=== PATIENT | female | born 1950 | race Caucasian/White ===

== ENCOUNTER → 2016-04-10 | Outpatient (CLI) | payer OTHER ==
[~2016-04-10] MED LIST: ALLOPURINOL100 MG PO; CHOLESTEROL PILL; HYDROCHLOROTHIA25 MG PO; PERCOCET 325 MG1 TA5 PO; ZETIA10 MG PO
== END | disposition home or self-care (01) ==
LOC: MAMMO 12:30
DX: Z12.31 Encounter for screening mammogram for malignant neoplasm of breast (principal)

== ENCOUNTER → 2016-11-07 | Outpatient (CLI) | payer OTHER | END | disposition home or self-care (01) | LOC: US 12:18 | DX: N95.0 Postmenopausal bleeding (principal); R93.8 Abnormal findings on diagnostic imaging of other specified body structures; N93.9 Abnormal uterine and vaginal bleeding, unspecified ==

== ENCOUNTER → 2016-12-23 | Outpatient (CLI) | payer OTHER ==
[~2016-12-23] MED LIST changes: +ATORVASTATIN CA10 M1 PO; +CENTRUM SILVER1 EAC1 PO; +COQ-1030 MG PO; +OMEGA 3 1,0001 EACH PO; +VALSARTAN40 MG PO; +VITAMIN D-32000 UNI1 PO
[2016-12-23 11:20] LABS: BASO % 0.2 % (0.0-1.0); EOS # 0.3 10*3/uL (0.0-0.4); EOS % 3.4 % (1.0-4.0); HEMATOCRIT 43.3 % (37.0-47.0); HEMOGLOBIN 14.6 g/dl (12.0-16.0); LYMPH % 49.9 % (27.0-41.0); MEAN CELL VOLUME 92.1 fl (81.0-99.0); MEAN CORPUSCULAR HGB 31.1 pg (27.0-31.0); MEAN CORPUSCULAR HGB CONC 33.7 g/dl (33.0-37.0); MEAN PLATELET VOLUME 10.6 fl (9.6-12.3); MONO # 0.6 10*3/uL (0.1-1.0); MONO % 7.7 % (3.0-9.0); NEUT # 3.1 10*3/uL (2.3-7.9); NEUT % 38.7 % (47.0-73.0); PLATELET COUNT AUTOMATED 198 10*3/uL (130-400); RED CELL DISTRI WIDTH 13.3 % (0-14.5); WHITE BLOOD COUNT 8.1 10*3/uL (4.8-10.8)
== END | disposition home or self-care (01) ==
LOC: LAB 09:32
PROVIDERS: Obstetrics & Gynecology
DX: N95.0 Postmenopausal bleeding (principal); N88.2 Stricture and stenosis of cervix uteri; R93.8 Abnormal findings on diagnostic imaging of other specified body structures

== ENCOUNTER → 2016-12-29 | Day surgery (SDC) | payer OTHER ==
[~2016-12-29] VITALS: Ht 160 cm; Wt 108.0 kg
--- NOTE | ~2016-12-29 | O ---
[place], [place] OPERATIVE NOTE NAME: AFIA CARLSON UNIT #: [id number] ROOM: DOCTOR: LISSA ALMAZAN MD BIRTHDATE: [birth year] DOS: 12/29/2016 PREOPERATIVE DIAGNOSES: Recurrent postmenopausal bleeding, thickened endometrium and history of internal os cervical stenosis. POSTOPERATIVE DIAGNOSES: Recurrent postmenopausal bleeding, thickened endometrium and history of internal os cervical stenosis with the intrauterine cavity revealing no asymmetry and no apparent atypicality and only minimal tissue. OPERATION: Hysteroscopy and D and C. SURGEON: Dr. Almazan and Dr. Cantor. ANESTHESIA: MAC. ESTIMATED BLOOD LOSS: Minimal. REPLACEMENTS: IV fluids and Toradol. COMPLICATIONS: There were no complications. CONDITION: The patient's condition to recovery stable. OPERATIVE SUMMARY: The patient was taken to the operating room in supine position. MAC anesthesia, lithotomy position, prepped and draped and a straight cath of the bladder. The vagina was atrophic as was the cervix. We grasped the cervix at 12 o'clock position, sounded the uterus to almost 8 cm, progressively dilated the cervix and introduced the hysteroscope. Examination of the fundus and the cornual region, the body of the uterus and lower uterine segment revealed no grossly atypicalities and did not reveal any areas consistent with atypical overgrowth hyperplasia worse. We then removed the hysteroscope and performed a thorough curettage and then used stone forceps revealed only minimal amount of additional tissue. Repeat hysteroscopy revealed no other atypicalities or abnormalities and was quite consistent with her first pass with the hysteroscope. Once this was completed, we removed all instrumentation and overall noted good hemostasis. We cleaned the patient off, took her out of lithotomy position, awakened her and transferred to recovery in satisfactory condition with stable vital signs, stable sponge and instrument count, good hemostasis and her urine output on the catheterization had been about 30 mL of clear urine. [place], [place] OPERATIVE NOTE NAME: AFIA CARLSON UNIT #: [id number] ROOM: DOCTOR: LISSA ALMAZAN MD BIRTHDATE: [birth year] LISSA ALMAZAN MD CM:OPRECORD:OPERATIVE NOTE 0900 [id number] PRESTON ALMAZAN MD 12/29/16 1007 interface
--- NOTE | ~2016-12-29 | WRIGHTHP ---
[place], [place] PATIENT HISTORY AND PHYSICAL EXAM [id number] UNIT #: [id number] ROOM: DOCTOR: LISSA HERNANDEZ MD BIRTHDATE: [birth year] DOS: 12/29/2016 DATE OF SURGERY: 12/29/2016 HISTORY OF PRESENT ILLNESS: This is a delightful 66-year-old white female, 4, para 3, AB 1, who we had a good discussion on 12/03/2016 in the office in regard to a recent ultrasound that had indicated 0.8 cm endometrial thickness. The patient had come in to the office that day due to the postmenopausal bleeding history, which she entailed spotting for 4 months of the year. The patient had a history on 08/23/2012 of having had similar issues, whereupon Dr. Ewing had taken her to the operating room and performed hysteroscopy and stated in the report numerous polyps were noted. D and C specimen was noted also to have a significant amount of tissue; however, when I reviewed the pathology report, it did not reveal any evidence of polyps, polypoid-like tissue and there were very rare fragments and even lower uterine segment tissue noted. D and C was thorough, but this does happen sometimes having this lack of correlation. The patient again had come to the office on 12/03/2016 for repeat endometrial biopsy and hysteroscopy if possible; however, I was unable to penetrate the rather stenotic endocervical canal and beyond and at that point the patient and I both decided that it would be better to repeat an outpatient D and C and hysteroscopy. The risks, benefits, indications, potential complications and alternatives were reviewed, understanding was stated and she did sign a consent for the said surgery on ____. PAST MEDICAL HISTORY: Reveals a history of gout and she was treated with allopurinol 300 mg daily. She has elevated cholesterol, treated with Lipitor 10 mg daily. She has hypertension, treated with valsartan 40 mg daily and hydrochlorothiazide 25 mg daily and finally she is treated with vitamin D for "vitamin D deficiency." She has had 4 pregnancies and 3 sections, 1 miscarriage. ALLERGIES: She has no known allergies. SOCIAL HISTORY: She does not smoke, does not drink. PAST SURGICAL HISTORY: Her only surgeries include C-sections and D and C. FAMILY HISTORY: Reveals father from esophageal cancer and the rest of family is otherwise healthy. PHYSICAL EXAMINATION: GENERAL: Reveals a pleasant white female. She is in no significant distress. VITAL SIGNS: She is 5 feet 3 inches, 236 pounds, body mass index is 41.8. She has no history of sleep apnea. Her blood pressure was 142/84 and again her oxygen saturation was within normal limits. HEENT: Grossly intact. NECK: Grossly intact. LUNGS: Grossly intact. CARDIAC: Grossly intact. BREAST: Grossly intact. [place], [place] PATIENT HISTORY AND PHYSICAL EXAM NAME: AFIA CARLSON UNIT #: [id number] ROOM: DOCTOR: LISSA HERNANDEZ MD BIRTHDATE: [birth year] ABDOMEN: Grossly intact. EXTREMITIES: Grossly intact. NEUROLOGIC: Grossly intact. GENITOURINARY: External genitalia, vagina, cervix normal. Most recent Pap negative and the endocervix has been noted above. By ultrasound, her uterus is normal size and configuration. The adnexa were negative. RECTAL: Deferred per the situation. ASSESSMENT: 1. Recurrent postmenopausal bleeding. 2. Stenotic internal cervical os. 3. Thickened endometrium per ultrasound. PLAN: The patient will undergo on 12/29/2016 an outpatient D and C and hysteroscopy. LISSA HERNANDEZ MD CM:HISPHYS:PATIENT HISTORY AND PHYSICAL EXAMINATION [id number] PRESTON HERNANDEZ MD 12/24/16 0359 interface
[2016-12-29 07:35] VITALS: BP 157/87
[2016-12-29 08:52] VITALS: BP 129/67
[2016-12-29 09:05] VITALS: BP 135/69
[2016-12-29 09:20] VITALS: BP 135/67
[2016-12-29 09:34] VITALS: BP 139/67
[2016-12-29 09:47] VITALS: BP 136/59
== END | disposition home or self-care (01) ==
LOC: SDC 12-23 09:30
DX: N84.0 Polyp of corpus uteri (principal); N92.4 Excessive bleeding in the premenopausal period; D26.0 Other benign neoplasm of cervix uteri; I10 Essential (primary) hypertension; M10.9 Gout, unspecified

== ENCOUNTER → 2017-03-30 | Outpatient (CLI) | payer OTHER ==
[2017-03-30 13:54] LABS: BASO % 0.3 % (0.0-1.0); EOS # 0.2 10*3/uL (0.0-0.4); EOS % 2.3 % (1.0-4.0); HEMATOCRIT 43.1 % (37.0-47.0); HEMOGLOBIN 14.3 g/dl (12.0-16.0); LYMPH # 3.8 10*3/uL (1.3-4.4); LYMPH % 49.3 % (27.0-41.0); MEAN CELL VOLUME 91.9 fl (81.0-99.0); MEAN CORPUSCULAR HGB 30.5 pg (27.0-31.0); MEAN CORPUSCULAR HGB CONC 33.2 g/dl (33.0-37.0); MEAN PLATELET VOLUME 9.8 fl (9.6-12.3); MONO # 0.5 10*3/uL (0.1-1.0); MONO % 6.1 % (3.0-9.0); NEUT # 3.2 10*3/uL (2.3-7.9); NEUT % 41.9 % (47.0-73.0); PLATELET COUNT AUTOMATED 237 10*3/uL (130-400); RED BLOOD COUNT 4.69 10*6/uL (4.10-5.10); RED CELL DISTRI WIDTH 13.5 % (0-14.5); WHITE BLOOD COUNT 7.7 10*3/uL (4.8-10.8)
[2017-03-30 14:26] LABS: ALBUMIN 3.8 gm/dl (3.1-4.5); BUN 13 mg/dl (7-24); CHLORIDE 107 mmol/L (98-107); CHOLESTEROL 166 mg/dL (<200); CREATININE 0.81 mg/dL (0.55-1.02); POTASSIUM 4.5 mmol/L (3.5-5.1); SGOT/AST 34 IU/L (3-35); SGPT/ALT 49 U/L (12-78); SODIUM 140 mmol/L (136-145); TOTAL PROTEIN 7.5 gm/dL (6.4-8.2); TRIGLYCERIDES 150 mg/dl (<150); VLDL CHOLESTEROL 30 mg/dL (6-40)
[2017-03-30 14:32] LABS: ALKALINE PHOSPHATASE 69 U/L (45-117); FREE T4 0.86 ng/dl (0.76-1.46); HDL CHOLESTEROL 52 mg/dl (40-60); LDL CHOLESTEROL 84 mg/dL (9-159)
[2017-03-31 08:11] LABS: CREATININE,URINE 19.2 mg/dL (Not Estab.); MICRO ALBUMIN/CRE RATIO 31.3 (0.0-30.0)
== END | disposition home or self-care (01) ==
LOC: LAB 13:10
PROVIDERS: Internal Medicine
DX: I10 Essential (primary) hypertension (principal); E78.5 Hyperlipidemia, unspecified; M10.9 Gout, unspecified

== ENCOUNTER → 2017-07-14 | Outpatient (CLI) | payer OTHER | END | disposition home or self-care (01) | LOC: MAMMO 15:44 | DX: Z12.31 Encounter for screening mammogram for malignant neoplasm of breast (principal) ==

== ENCOUNTER → 2017-12-04 | Day surgery (SDC) | payer MEDICARE, OTHER ==
[~2017-12-04] VITALS: Ht 160 cm; Wt 104.3 kg
[2017-12-04] VITALS (8 sets, daily range): BP systolic 128–165; BP diastolic 65–90
[~2017-12-04] MED LIST changes: +LOSARTAN POTASS50 M1 PO
--- NOTE | ~2017-12-04 | PROC NOTE ---
[place], [place] PROCEDURE NOTE NAME: AFIA CARLSON UNIT #: [id number] ROOM: DOCTOR: JOSLYN YODER,KENAN BIRTHDATE: [birth year] DOS: 12/04/2017 PROCEDURE: Colonoscopy and polypectomy. INDICATION: Colon cancer screening. Informed consent was obtained from the patient after the indication of procedure, the alternatives and potential complications were explained to her. PROCEDURE MEDICATION: Sedation was administered by Anesthesiology Department. Scope used was Olympus pediatric colonoscope variable stiffness GIF-180, depth of insertion was to the cecum, which was identified by the usual landmarks, appendiceal orifice, ileocecal valve and triangular fold, in addition to transillumination in the right lower quadrant. FINDINGS: After adequate sedation, the patient was placed in left lateral decubitus position. Rectal examination showed a normal sphincter tone and no external hemorrhoids. Scope was introduced into the rectum, then advanced to the cecum with no difficulty. The prep was adequate. Colon mucosa showed a 10 mm sigmoid polyp. Polyp was removed with a cold mini snare and recovered. The remaining colon mucosa appeared normal with no evidence of diverticula, ulcerations or obstructing lesions. Retroflexed views in the rectum showed small internal hemorrhoids. The scope was then withdrawn after the rectum was decompressed. The patient tolerated the procedure well. IMPRESSION: 1. Sigmoid polyp, removed. 2. Internal hemorrhoids. 3. Normal colon mucosa otherwise. PLAN: We will review the histopathology report and treat the patient accordingly. Office followup will be scheduled in 2-3 weeks. KENAN JORGENSEN MD CM:PROCNOTE:PROCEDURE NOTE [id number] PRESTON JORGENSEN MD
== END | disposition home or self-care (01) ==
LOC: SDC 12-01 09:30
DX: Z12.11 Encounter for screening for malignant neoplasm of colon (principal); D12.5 Benign neoplasm of sigmoid colon; K64.8 Other hemorrhoids; I10 Essential (primary) hypertension; E78.00 Pure hypercholesterolemia, unspecified; E66.9 Obesity, unspecified; M10.9 Gout, unspecified; Z68.41 Body mass index [BMI] 40.0-44.9, adult; Z98.891 History of uterine scar from previous surgery; Z79.899 Other long term (current) drug therapy

== ENCOUNTER → 2018-03-24 | Outpatient (CLI) | payer MEDICARE, OTHER ==
[2018-03-24 14:50] LABS: BASO % 0.3 % (0.0-1.0); EOS # 0.2 10*3/uL (0.0-0.4); EOS % 3.1 % (1.0-4.0); HEMATOCRIT 44.5 % (37.0-47.0); HEMOGLOBIN 14.5 g/dl (12.0-16.0); MEAN CELL VOLUME 94.9 fl (81.0-99.0); MEAN CORPUSCULAR HGB 30.9 pg (27.0-31.0); MEAN CORPUSCULAR HGB CONC 32.6 g/dl (33.0-37.0); MONO # 0.5 10*3/uL (0.1-1.0); MONO % 6.7 % (3.0-9.0); NEUT # 2.7 10*3/uL (2.3-7.9); NEUT % 35.8 % (47.0-73.0); PLATELET COUNT AUTOMATED 226 10*3/uL (130-400); RED BLOOD COUNT 4.69 10*6/uL (4.10-5.10); RED CELL DISTRI WIDTH 13.6 % (0-14.5); WHITE BLOOD COUNT 7.4 10*3/uL (4.8-10.8)
[2018-03-24 15:01] LABS: ALBUMIN 3.7 gm/dl (3.1-4.5); BUN 12 mg/dl (7-24); CHLORIDE 104 mmol/L (98-107); CHOLESTEROL 151 mg/dL (<200); CREATININE 0.82 mg/dL (0.55-1.02); SGOT/AST 34 IU/L (3-35); SGPT/ALT 58 U/L (12-78); SODIUM 139 mmol/L (136-145); TRIGLYCERIDES 180 mg/dl (<150); VLDL CHOLESTEROL 36 mg/dL (6-40)
[2018-03-24 15:07] LABS: ALKALINE PHOSPHATASE 78 U/L (45-117); FREE T4 0.81 ng/dl (0.76-1.46); HDL CHOLESTEROL 45 mg/dl (40-60); LDL CHOLESTEROL 70 mg/dL (9-159)
[2018-03-25 11:07] LABS: CREATININE,URINE 45.8 mg/dL (Not Estab.); MICRO ALBUMIN/CRE RATIO 15.5 (0.0-30.0)
== END | disposition home or self-care (01) ==
LOC: LAB 13:24
PROVIDERS: Internal Medicine
DX: I10 Essential (primary) hypertension (principal)

== ENCOUNTER → 2018-06-03 | Outpatient (CLI) | payer MEDICARE, OTHER | END | disposition home or self-care (01) | LOC: US 13:24 | DX: R10.2 Pelvic and perineal pain (principal); M50.90 Cervical disc disorder, unspecified, unspecified cervical region ==

== ENCOUNTER → 2019-01-18 | Day surgery (SDC) | payer MEDICARE, OTHER ==
[2019-01-11 13:48] VITALS: BP 159/69
[~2019-01-18] VITALS: Ht 160 cm; Wt 110.7 kg
[~2019-01-18] MED LIST changes: +CO Q10100 MG PO; +MEDROXYPROGESTER5 M1 PO; +Motrin,Rufen800 MG PO
[2019-01-18 09:09] VITALS: BP 169/74
[2019-01-18 10:50] VITALS: BP 153/74
[2019-01-18 11:05] VITALS: BP 164/81
[2019-01-18 11:20] VITALS: BP 158/84
[2019-01-18 11:34] VITALS: BP 151/71
[2019-01-18 12:21] VITALS: BP 151/71
== END | disposition home or self-care (01) ==
LOC: SDC 12-14 14:00
DX: N85.01 Benign endometrial hyperplasia (principal); M10.9 Gout, unspecified; I10 Essential (primary) hypertension; E78.00 Pure hypercholesterolemia, unspecified; E66.01 Morbid (severe) obesity due to excess calories; Z68.41 Body mass index [BMI] 40.0-44.9, adult; Z79.899 Other long term (current) drug therapy; Z98.890 Other specified postprocedural states; Z82.49 Family history of ischemic heart disease and other diseases of the circulatory system

== ENCOUNTER → 2019-04-15 | Outpatient (CLI) | payer MEDICARE, OTHER ==
[2019-04-15 12:31] LABS: BASO % 0.3 % (0.0-1.0); EOS # 0.2 10*3/uL (0.0-0.4); HEMOGLOBIN 13.9 g/dl (12.0-16.0); LYMPH # 4.3 10*3/uL (1.3-4.4); LYMPH % 47.2 % (27.0-41.0); MEAN CELL VOLUME 94.5 fl (81.0-99.0); MEAN CORPUSCULAR HGB 30.5 pg (27.0-31.0); MEAN CORPUSCULAR HGB CONC 32.3 g/dl (33.0-37.0); MEAN PLATELET VOLUME 9.4 fl (9.6-12.3); MONO # 0.6 10*3/uL (0.1-1.0); NEUT # 3.8 10*3/uL (2.3-7.9); NEUT % 42.7 % (47.0-73.0); PLATELET COUNT AUTOMATED 258 10*3/uL (130-400); RED BLOOD COUNT 4.55 10*6/uL (4.10-5.10)
[2019-04-15 12:56] LABS: ALBUMIN 3.9 gm/dl (3.1-4.5); BUN 10 mg/dl (7-24); CHLORIDE 109 mmol/L (98-107); CHOLESTEROL 124 mg/dL (<200); CREATININE 0.86 mg/dL (0.55-1.02); POTASSIUM 4.5 mmol/L (3.5-5.1); SGOT/AST 16 IU/L (3-35); SGPT/ALT 31 U/L (12-78); SODIUM 140 mmol/L (136-145); TRIGLYCERIDES 116 mg/dl (<150); URIC ACID 3.7 mg/dL (2.6-6.0); VLDL CHOLESTEROL 23 mg/dL (6-40)
[2019-04-15 13:04] LABS: ALKALINE PHOSPHATASE 51 U/L (45-117); FREE T4 0.83 ng/dl (0.76-1.46); HDL CHOLESTEROL 37 mg/dl (40-60); LDL CHOLESTEROL 64 mg/dL (9-159); TOTAL PROTEIN 7.6 gm/dL (6.4-8.2)
[2019-04-16 10:08] LABS: CREATININE,URINE 12.5 mg/dL (Not Estab.)
== END | disposition home or self-care (01) ==
LOC: LAB 11:50
PROVIDERS: Internal Medicine
DX: I10 Essential (primary) hypertension (principal); M10.9 Gout, unspecified

== ENCOUNTER → 2019-09-30 | Outpatient (CLI) | payer MEDICARE, OTHER | END | disposition home or self-care (01) | LOC: RAD 15:46 | DX: R05 Cough (principal) ==

== ENCOUNTER → 2019-12-08 | Outpatient (CLI) | payer MEDICARE, OTHER | END | disposition home or self-care (01) | LOC: MAMMO 12:51 | PROVIDERS: ATTEND Internal Medicine | DX: Z12.31 Encounter for screening mammogram for malignant neoplasm of breast (principal) ==

== ENCOUNTER → 2020-04-12 | Outpatient (CLI) | payer MEDICARE, OTHER ==
[2020-04-12 13:04] LABS: BASO % 0.3 % (0.0-1.0); EOS # 0.2 10*3/uL (0.0-0.4); EOS % 3.1 % (1.0-4.0); HEMATOCRIT 44.8 % (37.0-47.0); LYMPH # 3.7 10*3/uL (1.3-4.4); LYMPH % 49.5 % (27.0-41.0); MEAN CELL VOLUME 95.3 fl (81.0-99.0); MEAN CORPUSCULAR HGB 30.9 pg (27.0-31.0); MEAN CORPUSCULAR HGB CONC 32.4 g/dl (33.0-37.0); MEAN PLATELET VOLUME 9.3 fl (9.6-12.3); MONO # 0.5 10*3/uL (0.1-1.0); MONO % 7.3 % (3.0-9.0); NEUT % 39.7 % (47.0-73.0); PLATELET COUNT AUTOMATED 232 10*3/uL (130-400); RED CELL DISTRI WIDTH 13.3 % (0-14.5); WHITE BLOOD COUNT 7.4 10*3/uL (4.8-10.8)
[2020-04-12 13:36] LABS: ALKALINE PHOSPHATASE 69 U/L (45-117); BUN 13 mg/dl (7-24); CHLORIDE 104 mmol/L (98-107); CHOLESTEROL 157 mg/dL (<200); CREATININE 0.86 mg/dL (0.55-1.02); HDL CHOLESTEROL 50 mg/dl (40-60); LDL CHOLESTEROL 77 mg/dL (9-159); SGOT/AST 25 IU/L (3-35); SGPT/ALT 48 U/L (12-78); SODIUM 138 mmol/L (136-145); TOTAL PROTEIN 7.7 gm/dL (6.4-8.2); TRIGLYCERIDES 150 mg/dl (<150); URIC ACID 4.4 mg/dL (2.6-6.0); VLDL CHOLESTEROL 30 mg/dL (6-40)
[2020-04-12 13:40] LABS: VITAMIN D, 25-HYDROXY 41.2 ng/mL (30-100)
[2020-04-12 13:42] LABS: FREE T4 0.83 ng/dl (0.76-1.46)
[2020-04-13 09:10] LABS: CREATININE,URINE 11.7 mg/dL (Not Estab.); MICRO ALBUMIN/CRE RATIO <26 (0-29)
== END | disposition home or self-care (01) ==
LOC: LAB 12:43
PROVIDERS: ATTEND Internal Medicine
DX: I10 Essential (primary) hypertension (principal); M10.9 Gout, unspecified; E78.5 Hyperlipidemia, unspecified; E55.9 Vitamin D deficiency, unspecified

== ENCOUNTER → 2020-12-19 | Outpatient (CLI) | payer MEDICARE, OTHER | END | disposition home or self-care (01) | LOC: COVID19 16:40 | PROVIDERS: ATTEND Internal Medicine | DX: Z11.52 Encounter for screening for COVID-19 (principal) ==

== ENCOUNTER → 2020-12-24 | Outpatient (CLI) | payer MEDICARE, OTHER | END | disposition home or self-care (01) | LOC: MAMMO 10:56 | PROVIDERS: ATTEND Nurse Practitioner Women's Health | DX: Z12.31 Encounter for screening mammogram for malignant neoplasm of breast (principal) ==

== ENCOUNTER → 2021-04-17 | Outpatient (CLI) | payer MEDICARE, OTHER ==
[2021-04-17 11:38] LABS: BASO % 0.3 % (0.0-1.0); EOS # 0.2 10*3/uL (0.0-0.4); EOS % 2.7 % (1.0-4.0); HEMATOCRIT 43.9 % (37.0-47.0); LYMPH # 3.6 10*3/uL (1.3-4.4); LYMPH % 49.5 % (27.0-41.0); MEAN CELL VOLUME 95.4 fl (81.0-99.0); MEAN CORPUSCULAR HGB 31.7 pg (27.0-31.0); MEAN CORPUSCULAR HGB CONC 33.3 g/dl (33.0-37.0); MEAN PLATELET VOLUME 9.3 fl (9.6-12.3); MONO # 0.4 10*3/uL (0.1-1.0); NEUT % 41.4 % (47.0-73.0); PLATELET COUNT AUTOMATED 217 10*3/uL (130-400); RED CELL DISTRI WIDTH 13.1 % (0-14.5); WHITE BLOOD COUNT 7.3 10*3/uL (4.8-10.8)
[2021-04-17 11:55] LABS: ALBUMIN 3.7 gm/dl (3.1-4.5); ALKALINE PHOSPHATASE 67 U/L (45-117); BUN 15 mg/dl (7-24); CHLORIDE 106 mmol/L (98-107); CHOLESTEROL 160 mg/dL (<200); LDL CHOLESTEROL 79 mg/dL (9-159); POTASSIUM 4.7 mmol/L (3.5-5.1); SGOT/AST 32 IU/L (3-35); SGPT/ALT 50 U/L (12-78); SODIUM 138 mmol/L (136-145); TOTAL PROTEIN 7.6 gm/dL (6.4-8.2); TRIGLYCERIDES 165 mg/dl (<150)
[2021-04-17 12:00] LABS: FREE T4 0.78 ng/dl (0.76-1.46); URIC ACID 4.4 mg/dL (2.6-6.0)
[2021-04-17 13:24] LABS: VITAMIN D, 25-HYDROXY 46.1 ng/mL (30-100)
== END | disposition home or self-care (01) ==
LOC: LAB 11:14
PROVIDERS: ATTEND Internal Medicine
DX: E78.5 Hyperlipidemia, unspecified (principal); E55.9 Vitamin D deficiency, unspecified; M10.9 Gout, unspecified

== ENCOUNTER → 2022-02-27 | Outpatient (CLI) | payer MEDICARE, OTHER | END | disposition home or self-care (01) | LOC: MAMMO 09:30 | PROVIDERS: ATTEND Internal Medicine | DX: Z12.31 Encounter for screening mammogram for malignant neoplasm of breast (principal) ==

== ENCOUNTER → 2022-04-16 | Outpatient (CLI) | payer MEDICARE, OTHER ==
[2022-04-16 13:27] LABS: BASO % 0.4 % (0.0-1.0); EOS # 0.3 10*3/uL (0.0-0.4); EOS % 3.3 % (1.0-4.0); HEMATOCRIT 44.6 % (37.0-47.0); LYMPH # 3.4 10*3/uL (1.3-4.4); MEAN CELL VOLUME 94.5 fl (81.0-99.0); MEAN CORPUSCULAR HGB 31.1 pg (27.0-31.0); MEAN PLATELET VOLUME 9.2 fl (9.6-12.3); MONO # 0.5 10*3/uL (0.1-1.0); NEUT # 3.2 10*3/uL (2.3-7.9); NEUT % 43.2 % (47.0-73.0); PLATELET COUNT AUTOMATED 240 10*3/uL (130-400); RED BLOOD COUNT 4.72 10*6/uL (4.10-5.10); RED CELL DISTRI WIDTH 13.2 % (0-14.5); WHITE BLOOD COUNT 7.5 10*3/uL (4.8-10.8)
[2022-04-16 13:50] LABS: ALKALINE PHOSPHATASE 58 U/L (46-116); BUN 12 mg/dl (9-23); CHLORIDE 104 mmol/L (98-107); CHOLESTEROL 187 mg/dL (<200); LDL CHOLESTEROL 111 mg/dL (9-159); SGPT/ALT 25 U/L (10-49); THYROID STIM HORMONE (HS) 1.753 uIU/ml (0.550-4.780); TOTAL PROTEIN 7.5 gm/dL (6.0-8.0); TRIGLYCERIDES 121 mg/dl (<150); URIC ACID 5.1 mg/dL (3.1-7.8)
[2022-04-16 14:19] LABS: VITAMIN D, 25-HYDROXY 38.7 ng/mL (30-100)
== END | disposition home or self-care (01) ==
LOC: LAB 12:42
PROVIDERS: ATTEND Internal Medicine
DX: E78.5 Hyperlipidemia, unspecified (principal); E55.9 Vitamin D deficiency, unspecified; I10 Essential (primary) hypertension; M10.9 Gout, unspecified

== ENCOUNTER → 2023-04-03 | Outpatient (CLI) | payer MEDICARE, OTHER ==
[2023-04-03 11:08] LABS: BILIRUBIN Negative (Negative); BLOOD Negative (Negative); CLARITY Clear (Clear); COLOR Yellow (Yellow); GLUCOSE Negative (Negative); KETONE Negative (Negative); LEUKO ESTERASE 1+ (Negative); NITRITE Negative (Negative); PH 6.5 (4.5-8.0); SPECIFIC GRAVITY <= 1.005 (1.001-1.030); UROBILINOGEN 0.2 E.U./dl (0.0-1.0)
[2023-04-03 11:29] LABS: VITAMIN D, 25-HYDROXY 50.2 ng/mL (30-100)
[2023-04-03 11:31] LABS: ALKALINE PHOSPHATASE 63 U/L (46-116); BUN 8 mg/dl (9-23); CHLORIDE 105 mmol/L (98-107); CHOLESTEROL 161 mg/dL (<200); LDL CHOLESTEROL 86 mg/dL (9-159); POTASSIUM 4.2 mmol/L (3.4-5.1); SGPT/ALT 40 U/L (5-49); TOTAL PROTEIN 7.4 gm/dL (6.0-8.0); TRIGLYCERIDES 171 mg/dl (<150); URIC ACID 4.6 mg/dL (3.1-7.8)
[2023-04-03 11:41] LABS: EPITHELIAL CELLS 0-2; RBC 0-2 rbc/hpf (0-2)
[2023-04-03 11:58] LABS: BASO % 0.3 % (0.0-1.0); EOS # 0.3 10*3/uL (0.0-0.4); EOS % 3.6 % (1.0-4.0); HEMATOCRIT 45.1 % (37.0-47.0); LYMPH % 41.9 % (27.0-41.0); MEAN CELL VOLUME 95.1 fl (81.0-99.0); MEAN CORPUSCULAR HGB 30.6 pg (27.0-31.0); MEAN CORPUSCULAR HGB CONC 32.2 g/dl (33.0-37.0); MONO # 0.5 10*3/uL (0.1-1.0); MONO % 6.8 % (3.0-9.0); NEUT # 3.4 10*3/uL (2.3-7.9); PLATELET COUNT AUTOMATED 234 10*3/uL (130-400); RED BLOOD COUNT 4.74 10*6/uL (4.10-5.10); RED CELL DISTRI WIDTH 13.2 % (0-14.5); WHITE BLOOD COUNT 7.2 10*3/uL (4.8-10.8)
== END | disposition home or self-care (01) ==
LOC: LAB 10:32
PROVIDERS: ATTEND Internal Medicine
DX: I10 Essential (primary) hypertension (principal); E55.9 Vitamin D deficiency, unspecified; E78.5 Hyperlipidemia, unspecified

== ENCOUNTER → 2023-04-15 | Outpatient (CLI) | payer MEDICARE, OTHER | END | disposition home or self-care (01) | LOC: MAMMO 00:53 | PROVIDERS: ATTEND Internal Medicine | DX: Z12.31 Encounter for screening mammogram for malignant neoplasm of breast (principal) ==

== ENCOUNTER → 2024-07-25 | Outpatient (CLI) | payer MEDICARE, OTHER ==
[2024-07-25 12:42] LABS: BASO % 0.3 % (0.0-1.0); EOS # 0.3 10*3/uL (0.0-0.4); HEMATOCRIT 42.6 % (37.0-47.0); MEAN CELL VOLUME 94.9 fl (81.0-99.0); MEAN CORPUSCULAR HGB 31.4 pg (27.0-31.0); MEAN CORPUSCULAR HGB CONC 33.1 g/dl (33.0-37.0); MEAN PLATELET VOLUME 9.3 fl (9.6-12.3); MONO # 0.7 10*3/uL (0.1-1.0); MONO % 8.2 % (3.0-9.0); NEUT # 2.9 10*3/uL (2.3-7.9); NEUT % 36.6 % (47.0-73.0); PLATELET COUNT AUTOMATED 236 10*3/uL (130-400); RED BLOOD COUNT 4.49 10*6/uL (4.10-5.10); RED CELL DISTRI WIDTH 13.3 % (0-14.5); WHITE BLOOD COUNT 7.9 10*3/uL (4.8-10.8)
[2024-07-25 12:45] LABS: BILIRUBIN Negative (Negative); BLOOD Negative (Negative); CLARITY Clear (Clear); COLOR Yellow (Yellow); GLUCOSE Negative (Negative); KETONE Negative (Negative); LEUKO ESTERASE 1+ (Negative); NITRITE Negative (Negative); SPECIFIC GRAVITY <= 1.005 (1.001-1.030); UROBILINOGEN 0.2 E.U./dl (0.0-1.0)
[2024-07-25 12:51] LABS: BACTERIA TRACE
[2024-07-25 13:23] LABS: ALKALINE PHOSPHATASE 56 U/L (46-116); BUN 16 mg/dl (9-23); CHLORIDE 103 mmol/L (98-107); CHOLESTEROL 178 mg/dL (<200); FREE T4 0.98 ng/dl (0.89-1.76); LDL CHOLESTEROL 99 mg/dL (9-159); POTASSIUM 4.8 mmol/L (3.4-5.1); SGPT/ALT 30 U/L (5-49); TOTAL PROTEIN 7.3 gm/dL (6.0-8.0); TRIGLYCERIDES 175 mg/dl (<150); URIC ACID 5.1 mg/dL (3.1-7.8); VITAMIN D, 25-HYDROXY 46.5 ng/mL (30-100)
== END | disposition home or self-care (01) ==
LOC: LAB 11:50
PROVIDERS: ATTEND Internal Medicine
DX: I10 Essential (primary) hypertension (principal); M10.9 Gout, unspecified; E55.9 Vitamin D deficiency, unspecified

== ENCOUNTER → 2024-11-22 | Outpatient (CLI) | payer MEDICARE, OTHER | END | disposition home or self-care (01) | LOC: MAMMO 14:22 | PROVIDERS: ATTEND Internal Medicine | DX: Z12.31 Encounter for screening mammogram for malignant neoplasm of breast (principal); R92.313 Mammographic fatty tissue density, bilateral breasts ==